=== PATIENT | female | born 1945 | race Caucasian/White ===

== ENCOUNTER 2019-03-20 15:03 | Emergency (ER) | payer OTHER, BC ==
[2019-03-20 15:33] VITALS: BP 148/85; PULSE 89; TEMP 98.1; BMI 36.0
[2019-03-20] MEDS ORDERED: ACETAMINOPHEN 500 MG TABLET (FP) PO ONE (16:00)
[2019-03-20] MEDS ORDERED: ACETAMINOPHEN 325 MG TABLET (FP) ONE (16:13)
--- NOTE | 2019-03-20 17:17 | PDOC ---
History of Present Illness - General Chief Complaint: Pain Stated Complaint: RT FOOT PAIN Time Seen by Provider: 03/20/19 15:10 - History of Present Illness Initial Comments: 03/20/19 17:15 Chief complaint right foot pain History of present illness: 73 years old past medical history significant for [id number] diabetes, psoriasis, edema presents with acute on chronic right ankle pain. Patient is status post cortisone injection to her regularly malleolus for chronic right ankle pain however instead of resting patient travel to [place] and has been walking on her foot for the past week now presents with progressively worsening pain to the same medial malleolus persistent constant worse with ambulation. No fever Past History - Past Medical History Allergies/Adverse Reactions: Allergies Allergy/AdvReac Type Severity Reaction Status Date / Time No Known Allergies Allergy Verified 03/20/19 15:04 COPD: No Diabetes: Yes Other medical history: PSORIASIS - Suicide/Smoking/Psychosocial Hx Smoking History: Never smoked Information on smoking cessation initiated: No Hx Alcohol Use: No Review of Systems - Review of Systems Comments:: 03/20/19 17:15 ROS: A complete review of 10 out of 10 review of systems is taken and is negative apart from what is previously mentioned below and in the HPI. *Physical Exam - Vital Signs Last Vital Signs Temp Pulse Resp BP Pulse Ox 98.1 F 89 18 148/85 97 03/20/19 15:03 03/20/19 15:03 03/20/19 15:03 03/20/19 15:03 03/20/19 15:03 - Physical Exam Comments: 03/20/19 17:15 Vitals: Triage Vital signs reviewed General Appearance: no acute distress, well nourished well developed, Head: Atraumatic, Extremities: Full range of motion to all extremities, swelling to the right ankle tenderness palpation over the right middle malleolus Skin: Warm and dry, dry skin Neuro: AOX3; Cranial Nerves 2-12 grossly intact, Strength intact to all extremities, Sensation intact to all extremities,gait normal Psych: normal mood, normal affect ED Treatment Course - Medications Given in the ED: ED Medications Discontinued Medications Generic Name Dose Route Start Last Admin Trade Name Freq PRN Reason Stop Dose Admin Acetaminophen 975 mg 03/20/19 16:00 03/20/19 16:15 Tylenol - PO 03/20/19 16:01 975 mg ONCE ONE Administration Medical Decision Making - Medical Decision Making 03/20/19 17:16 Acute on chronic right ankle pain Patient with Flats, not resting not using compression stockings not elevating foot Likely worsening pain secondary to overuse and arthritis/tendinitis We'll recommend sneakers compression stockings rest ice elevation and follow up with her porcelain slusher this week No acute fracture dislocation noted x-ray. Findings, need for follow-up and strict return instructions discussed with patient. *DC/Admit/Observation/Transfer Diagnosis at time of Disposition: Ankle pain Qualifiers: Chronicity: chronic Laterality: right Qualified Code(s): M25.571 - Pain in right ankle and joints of right foot; G89.29 - Other chronic pain - Discharge Dispostion Condition at time of disposition: Stable Decision to Admit order: No - Referrals - Patient Instructions Printed Discharge Instructions: DI for Ankle Pain Additional Instructions: Rest ankle as much as possible. Use compression stockings at all times. Ice affected area 20 minutes on 20 minutes off. Continue to alternate Tylenol Motrin as directed on package as needed for pain. After swelling reduces discussed with your porcelain slusher within 1 week the best type of footwear to help with her condition. Follow-up with the porcelain slusher within 1 week. - Post Discharge Activity
== END 2019-03-20 18:08 | disposition home or self-care (01) ==
LOC: FER 15:03
DX: M25.571 Pain in right ankle and joints of right foot (principal); G89.29 Other chronic pain; E11.9 Type 2 diabetes mellitus without complications; L40.9 Psoriasis, unspecified; R60.0 Localized edema
CPT/HCPCS: 73610-TC-RT-FY; 73630-TC-RT-FY; 99283-25

== ENCOUNTER 2019-08-01 22:40 | Emergency (ER) | payer OTHER, BC ==
[2019-08-01 22:48] VITALS: TEMP 98.7; BMI 37.8
[2019-08-01 23:13] VITALS: BP 171/98; PULSE 99
[2019-08-01] MEDS ORDERED: ASPIRIN 81 MG CHEWABLE TABLETS PO ONE (23:16)
--- NOTE | 2019-08-01 23:16 | PDOC ---
History of Present Illness - General Chief Complaint: Nausea/Vomiting Stated Complaint: NAUSEA,VOMITING MARINA ARMPIT PAIN History Source: Patient Exam Limitations: No Limitations - History of Present Illness Initial Comments: 08/01/19 23:09 Identification this is a 74-year-old female who comes in complaining of the bilateral axillary pain with some chest pain associated with nausea shortness of breath and vomited times once. Patient was out to eat dinner and suddenly developed bilateral axillary pain. Patient went outside to get some fresh air because she felt short of breath vomited times one and became very diaphoretic. Patient came in by EMS. Patient has history significant for hypertension, high cholesterol and diabetes Allergies: as per nursing notes Past Medical History: none Social history: Lives with family. No smoking. No alcohol. No illicit drugs. Surgical history: None General: No fevers or chills, no weakness, no weight loss HEENT: No change in vision. No sore throat,. No ear pain CardioVascular: no chest discomfort. No shortness of breath Respiratory:No cough, or wheezing. Gastrointestinal: no nausea, vomiting, diarrhea or constipation, No rectal bleeding Genitourinary: No dysuria, hematuria, or frequency Musculoskeletal: No joint or muscle pain or swelling Neurologic: No headache, vertigo, dizziness or loss of consciousness Psychiatric: nor depression Skin: No rashes or easy bruising Endocrine: no increased thirst or abnormal weight change Allergic: no skin or latex allergy All other systems reviewed and normal Exam: General: Well-nourished well-developed individual, no acute distress HEENT: Throat: Normal, tonsils normal, no erythema or exudate Neck: Supple, no meningeal signs, no lymphadenopathy Eyes::Pupils equal reactive and round, extraocular motion intact Chest: Nontender to palpation Cardiac: S1-S2 normal, regular rate and rhythm, no murmurs rubs or gallops Respiratory: Lungs clear to auscultation bilateral Abdomen: Soft, nondistended, normal bowel sounds, there is no tenderness on palpation diffusely Extremities: Warm, dry, no cyanosis, clubbing, or edema Skin: No rashes Neuro: Alert and oriented x3, CN II - XII intact, nonfocal exam with normal strength, normal sensation, normal reflexes, normal gait, Psych: Normal mood and affect 08/01/19 23:24 Assessment and plan: This is a 74-year-old female with a family most likely right-sided. Patient has multiple risk factors. [facility] was contacted and patient is been out of accepted to the adult ED possibly to go to the straight to the catheter lab. Transport is here at this time patient is being transferred to [facility] Past History - Past Medical History Allergies/Adverse Reactions: Allergies Allergy/AdvReac Type Severity Reaction Status Date / Time moxifloxacin [From Avelox] Allergy Verified 08/01/19 23:25 Home Medications: Ambulatory Orders Empagliflozin [Jardiance] 10 mg PO 08/01/19 Glipizide 5 mg PO 08/01/19 Sitagliptin Phos/Metformin HCl [Janumet 50-1,000 mg Tablet] 1 each PO 08/01/19 COPD: No Diabetes: Yes - Suicide/Smoking/Psychosocial Hx Smoking History: Never smoked Have you smoked in the past 12 months: No Information on smoking cessation initiated: No Hx Alcohol Use: No Drug/Substance Use Hx: No *Physical Exam - Vital Signs Last Vital Signs Temp Pulse Resp BP Pulse Ox 98.7 F 99 H 12 171/98 H 98 08/01/19 22:41 08/01/19 23:11 08/01/19 23:11 08/01/19 23:11 08/01/19 23:11 ED Treatment Course - LABORATORY CBC & Chemistry Diagram: 08/01/19 22:50 08/01/19 22:50 - ADDITIONAL ORDERS Additional order review: Laboratory Results 08/01/19 08/01/19 22:50 22:50 Sodium 136 Potassium 4.5 Chloride 98 Carbon Dioxide 27 Anion Gap 11 BUN 20.0 H Creatinine 0.9 Est GFR (CKD-EPI)AfAm 72.49 Est GFR (CKD-EPI)NonAf 62.55 Random Glucose 184 H Calcium 9.5 Total Bilirubin 0.6 AST 28 ALT 21 Alkaline Phosphatase 65 Creatine Kinase 73 Troponin I 0.25 H Total Protein 7.6 Albumin 4.2 08/01/19 22:50 RBC 6.26 H MCV 66.3 L MCHC 32.0 RDW 15.2 MPV 8.4 Neutrophils % 75.4 Lymphocytes % 16.4 Monocytes % 6.5 Eosinophils % 1.3 Basophils % 0.4 - Medications Given in the ED: ED Medications Discontinued Medications Generic Name Dose Route Start Last Admin Trade Name Freq PRN Reason Stop Dose Admin Aspirin 325 mg 08/01/19 23:16 08/01/19 23:22 Asa - PO 08/01/19 23:17 325 mg ONCE ONE Administration Nitroglycerin 0.3 mg 08/01/19 23:17 08/01/19 23:22 Nitrostat - SL 08/01/19 23:18 0.3 mg ONCE ONE Administration Medical Decision Making - Critical Care Time Total Critical Care Time (minutes): 45 Critical Care Statement: The care of this patient involved high complexity decision making to prevent further life threatening deterioration of the patient 's condition and/or to evaluate & treat vital organ system(s) failure or risk of failure. *DC/Admit/Observation/Transfer Diagnosis at time of Disposition: STEMI (ST elevation myocardial infarction) - Discharge Dispostion Disposition: TRANSFER ACUTE CARE/OTHER HOSP - Referrals Referrals: Tyshawn Aguilar MD [Primary Care Provider] - - Patient Instructions - Post Discharge Activity
[2019-08-01] MEDS ORDERED: NITROGLYCERIN SUBLINGUAL 1/200 0.3 MG BTL SL ONE (23:17)
[2019-08-01 23:18] LABS: ADD RBC MORPHOLOGY YES; BASO % 0.4 % (0-2.0); EOS % 1.3 % (0-4.5); HEMATOCRIT 41.5 % (32.4-45.2); HEMOGLOBIN 13.3 GM/dl (10.7-15.3); LYMPH % 16.4 % (8-40); MCH 21.2 pg (25.7-33.7); MEAN CELL VOLUME 66.3 fl (80-96); MEAN PLT VOLUME 8.4 fl (7.5-11.1); MONO % 6.5 % (3.8-10.2); NEUT % 75.4 % (42.8-82.8); PLATELET COUNT 271 K/MM3 (134-434); RBC 6.26 M/mm3 (3.60-5.2); RDW 15.2 % (11.6-15.6); WHITE BLOOD COUNT 12.4 K/mm3 (4.0-10.8)
[2019-08-01] MEDS ORDERED: ASPIRIN 81 MG CHEWABLE TABLETS ONE (23:20)
[2019-08-01] MEDS ORDERED: NITROGLYCERIN SUBLINGUAL 1/150 0.4 MG TAB ONE (23:20)
[2019-08-01 23:32] LABS: ANISOCYTOSIS 1+
[2019-08-01 23:33] LABS: OVALOCYTE 1+; PLATELET ESTIMATE ADEQUATE
[2019-08-01 23:35] LABS: ALBUMIN 4.2 g/dl (3.4-5.0); BILIRUBIN,TOTAL 0.6 mg/dl (0.2-1); CALCIUM 9.5 mg/dl (8.5-10); CREATININE 0.9 mg/dl (0.55-1.3); POTASSIUM 4.5 mmol/L (3.5-5.1); TOT PROT 7.6 g/dl (6.4-8.2)
--- NOTE | 2019-08-02 23:47 | EKG ---
Test Reason : Blood Pressure : / mmHG Vent. Rate : 100 BPM Atrial Rate : 100 BPM P-R Int : 164 ms QRS Dur : 084 ms QT Int : 366 ms P-R-T Axes : 053 006 068 degrees QTc Int : 472 ms Suspect unspecified pacemaker failure NORMAL SINUS RHYTHM LOW VOLTAGE QRS SEPTAL INFARCT , AGE UNDETERMINED INFERIOR INJURY PATTERN ACUTE CT / STEMI Consider right ventricular involvement in acute inferior infarct ABNORMAL ECG NO PREVIOUS ECGS AVAILABLE Confirmed by CAROLINA MANZO, MÓNICA ([id number]) on 08/02/2019 11:46:44 PM Referred By: MD SHEPHERD Confirmed By:MÓNICA FIGUEROA MD
--- NOTE | 2019-08-04 18:29 | EKG ---
Test Reason : Blood Pressure : / mmHG Vent. Rate : 101 BPM Atrial Rate : 101 BPM P-R Int : 164 ms QRS Dur : 084 ms QT Int : 376 ms P-R-T Axes : 056 018 074 degrees QTc Int : 487 ms SINUS TACHYCARDIA WITH PREMATURE ATRIAL COMPLEXES LOW VOLTAGE QRS ANTEROLATERAL INFARCT (CITED ON OR BEFORE 01-AUG-2019) ABNORMAL ECG WHEN COMPARED WITH ECG OF 01-AUG-2019 22:54, PREMATURE ATRIAL COMPLEXES ARE NOW PRESENT POOR R PROGRESSION Confirmed by KAYA NICHOLSON MD ([id number]) on 08/04/2019 6:29:36 PM Referred By: MD SHEPHERD Confirmed By:KAYA NICHOLSON MD
== END 2019-08-01 23:45 | disposition short-term general hospital (02) ==
LOC: FER 22:40 → SUPCPDRO 22:40 → FER 23:45
DX: I21.3 ST elevation (STEMI) myocardial infarction of unspecified site (principal); E11.9 Type 2 diabetes mellitus without complications
CPT/HCPCS: 36415; 80053; 82550; 84484; 85025; 93005; 99283-25

== ENCOUNTER 2020-01-03 12:20 | Inpatient (IN) | payer OTHER, BC ==
--- NOTE | 2020-01-03 13:00 | PDOC ---
History of Present Illness - General Chief Complaint: Chest Pain Stated Complaint: BELCHING,CHESTPAIN Time Seen by Provider: 01/03/20 12:42 History Source: Patient Exam Limitations: No Limitations - History of Present Illness Initial Comments: 74 yo F history CAD (s/p cath a few months ago), HTN, HL, DM presents with 3 day history of substernal chest burning/pressure. Denies any associated SOB, TODD. She notes that it is worse with meals, but that it occurs in the absence of meals, as well. Associated with nausea. She states she had a heart attack a few months ago, symptoms included facial flushing, followed by nausea and vigorous vomiting after a meal. Currently has the pressure sensation. Past History - Past Medical History Allergies/Adverse Reactions: Allergies Allergy/AdvReac Type Severity Reaction Status Date / Time moxifloxacin [From Avelox] Allergy Verified 01/03/20 12:22 Home Medications: Ambulatory Orders Aspirin [ASA -] 81 mg PO DAILY 01/03/20 Atorvastatin Ca [Lipitor] 80 mg PO HS 01/03/20 Clopidogrel Bisulfate [Clopidogrel] 75 mg PO DAILY 01/03/20 Empagliflozin [Jardiance] 10 mg PO DAILY 01/03/20 Glipizide [Glipizide ER] 5 mg PO DAILY 01/03/20 Metoprolol Succinate [Toprol Xl] 50 mg PO DAILY 01/03/20 Sitagliptin Phos/Metformin HCl [Janumet 50-1,000 mg Tablet] 1 each PO BID COPD: No Diabetes: Yes HTN: Yes Hypercholesterolemia: Yes - Surgical History Cardiac Surgery: (CARDIAC CATH) - Psycho Social/Smoking Cessation Hx Smoking History: Never smoked Have you smoked in the past 12 months: No Information on smoking cessation initiated: No Hx Alcohol Use: No Drug/Substance Use Hx: No Review of Systems - Review of Systems Able to Perform ROS?: Yes Comments:: GENERAL/CONSTITUTIONAL: No fever or chills. No weakness. HEAD, EYES, EARS, NOSE AND THROAT: No change in vision. No ear pain or discharge. No sore throat. CARDIOVASCULAR: +Chest pain. No shortness of breath. RESPIRATORY: No cough, wheezing, or hemoptysis. GASTROINTESTINAL: No nausea, vomiting, diarrhea or constipation. GENITOURINARY: No dysuria, frequency, or change in urination. MUSCULOSKELETAL: No joint or muscle swelling or pain. No neck or back pain. SKIN: No rash. NEUROLOGIC: No headache, vertigo, loss of consciousness, or change in strength/ sensation. ENDOCRINE: No increased thirst. No abnormal weight change. HEMATOLOGIC/LYMPHATIC: No anemia, easy bleeding, or history of blood clots. ALLERGIC/IMMUNOLOGIC: No hives or skin allergy. *Physical Exam - Vital Signs Last Vital Signs Temp Pulse Resp BP Pulse Ox 98.6 F 74 20 141/85 97 01/03/20 12:21 01/03/20 12:21 01/03/20 12:21 01/03/20 12:21 01/03/20 12:21 - Physical Exam GENERAL: Awake, alert, and fully oriented, in no acute distress. Obese HEAD: No signs of trauma EYES: PERRLA, EOMI, sclera anicteric, conjunctiva clear ENT: Auricles normal inspection, hearing grossly normal, nares patent, oropharynx clear without exudates. Moist mucosa NECK: Normal ROM, supple, no lymphadenopathy, JVD, or masses LUNGS: Breath sounds equal, clear to auscultation bilaterally. No wheezes, and no crackles HEART: Regular rate and rhythm, normal S1 and S2, no murmurs, rubs or gallops ABDOMEN: Soft, nontender, normoactive bowel sounds. No guarding, no rebound. No masses EXTREMITIES: Normal range of motion, no edema. No clubbing or cyanosis. No cords, erythema, or tenderness NEUROLOGICAL: Cranial nerves II through XII grossly intact. Normal speech, normal gait. Motor and sensation intact SKIN: Warm, dry, normal turgor, no rashes or lesions noted. Heart Score/ECG Review - History History: Moderately suspicious - Electrocardiogram EKG: Normal - Age Age: >/= 65 - Risk Factors Risk Factors Heart Score: Yes Hx Hypercholesterolemia, Yes Hx Hypertension, Yes Hx Diabetes, Yes Hx Obesity Based on the list above the patient has:: >/=3 risk factors or Hx atherosclerotic disease - Troponin Troponin: </= normal limit - Score Heart Score - Total: 5 ED Treatment Course - LABORATORY CBC & Chemistry Diagram: 01/03/20 13:40 01/03/20 13:40 Medical Decision Making - Medical Decision Making 01/03/20 14:44 Pt with recent LA, multiple cardiac risk factors presents with substernal chest pressure for the past few days. No acute changes on EKG. Given her risk factors , will place on obs. 01/03/20 15:11 Case d/w Dr. Ahn, will admit to tele. Discharge - Discharge Information Problems reviewed: Yes Clinical Impression/Diagnosis: Chest pain Qualifiers: Chest pain type: unspecified Qualified Code(s): R07.9 - Chest pain, unspecified Condition: Stable - Admission Yes - Follow up/Referral - Patient Discharge Instructions - Post Discharge Activity
[2020-01-03] MEDS ORDERED: FAMOTIDINE 20 MG/50 ML IVPB 20 MG/50 ML MG IVPB ONE (13:41)
[2020-01-03 13:55] LABS: HEMOGLOBIN 12.6 GM/dl (10.7-15.3)
[2020-01-03 14:00] LABS: INR 1.21 (0.82-1.09); PROTHROMBIN TIME (PATIENT) 13.5 SEC (10.2-13.0)
[2020-01-03 14:03] LABS: ALBUMIN 3.8 g/dl (3.4-5.0); BILIRUBIN,TOTAL 0.8 mg/dl (0.2-1); CALCIUM 9.2 mg/dl (8.5-10); CREATININE 0.7 mg/dl (0.55-1.3); POTASSIUM 4.8 mmol/L (3.5-5.1); TOT PROT 6.8 g/dl (6.4-8.2)
[2020-01-03 14:05] LABS: BASO % 0.6 % (0-2.0); EOS % 1.5 % (0-4.5); HEMATOCRIT 40.6 % (32.4-45.2); LYMPH % 16.6 % (8-40); MCH 20.8 pg (25.7-33.7); MCHC 30.9 g/dl (32.0-36.0); MEAN CELL VOLUME 67.4 fl (80-96); MEAN PLT VOLUME 8.7 fl (7.5-11.1); MONO % 8.6 % (3.8-10.2); NEUT % 72.7 % (42.8-82.8); PLATELET COUNT 194 K/MM3 (134-434); RBC 6.03 M/mm3 (3.60-5.2); RDW 14.6 % (11.6-15.6); WHITE BLOOD COUNT 8.9 K/mm3 (4.0-10.8)
[2020-01-03 14:06] LABS: ADD RBC MORPHOLOGY YES
[2020-01-03 14:11] LABS: ROULEAU FEW
[2020-01-03] MEDS ORDERED: MAG HYDROX/AL HYDROX/SIMETH 30 ML UNIT-DOSE CUP PO PRN (15:25)
--- NOTE | 2020-01-03 15:45 | HP ---
Admitting History and Physical - Admission Chief Complaint: Epigastric burning History of Present Illness: 74 years old obese female history of CAD status post VA in August 01, hypertension, dyslipidemia, type 2 diabetes mellitus, in July 2019 patient was presented also ED with chest pain with ST-T changes patient was transferred to [facility] there she had cardiac catheterization considering unsuitable anatomy for stent placement, patient was planned for medical management, she has been doing fine today presented with complaint of 3 day history of substernal chest burning/pressure. Denies any associated SOB, TODD. She notes that it is worse with meals, but that it occurs in the absence of meals, as well. Associated with nausea. She states she had a heart attack a few months ago, symptoms included facial flushing, followed by nausea and vigorous vomiting after a meal. Patient is hemodynamically stable, initial EKG shows no acute ST-T changes, initial cardiac enzymes negative, considering multiple CAD risk factor and presentation is being admitted to rule out ACS.. Dining Host consulted from the ED. History Source: Patient - Past Medical History Cardiovascular: Yes: CAD, HTN Gastrointestinal: Yes: GERD, Peptic Ulcer Disease - Smoking History Smoking history: Never smoked Have you smoked in the past 12 months: No - Alcohol/Substance Use Hx Alcohol Use: No - Social History Usual Living Arrangement: Yes: With Spouse History of Recent Travel: No Home Medications - Allergies Allergies/Adverse Reactions: Allergies Allergy/AdvReac Type Severity Reaction Status Date / Time moxifloxacin [From Avelox] Allergy Verified 01/03/20 12:22 - Home Medications Home Medications: Ambulatory Orders Aspirin [ASA -] 81 mg PO DAILY 01/03/20 Atorvastatin Ca [Lipitor] 80 mg PO HS 01/03/20 Clopidogrel Bisulfate [Clopidogrel] 75 mg PO DAILY 01/03/20 Empagliflozin [Jardiance] 10 mg PO DAILY 01/03/20 Glipizide [Glipizide ER] 5 mg PO DAILY 01/03/20 Metoprolol Succinate [Toprol Xl] 50 mg PO DAILY 01/03/20 Sitagliptin Phos/Metformin HCl [Janumet 50-1,000 mg Tablet] 1 each PO BID Review of Systems - Review of Systems Constitutional: denies: Chills, Diaphoresis, Fever, Lethargy Eyes: denies: Blind Spots, Blurred Vision, Double Vision, Eye Pain HENT: denies: Difficult Swallowing, Ear Discharge, Ear Pain, Epistaxis Neck: denies: Decreased ROM, Lumps, Pain on Movement Cardiovascular: reports: Chest Pain. denies: Edema, Palpitations, Shortness of Breath Respiratory: denies: Cough, Exercise Intolerance, Hemoptysis, Orthopnea Gastrointestinal: reports: Abdominal Pain, Nausea. denies: Constipation, Diarrhea Genitourinary: denies: Burning, Discharge, Dysuria, Flank Pain Breasts: denies: Breast Implants, Discharge from Nipple Musculoskeletal: denies: Back Pain, Crepitus, Decreased ROM Integumentary: denies: Blister, Bruising, Change in Color Neurological: denies: Change in LOC, Change in Speech, Confusion Endocrine: denies: Excessive Sweating, Flushing, Increased Hunger Hematology/Lymphatic: denies: Easily Bruised, Excessive Bleeding Physical Examination Vital Signs: Vital Signs Temperature 98.6 F 01/03/20 12:21 Pulse Rate 74 01/03/20 12:21 Respiratory Rate 20 01/03/20 12:21 Blood Pressure 141/85 01/03/20 12:21 O2 Sat by Pulse Oximetry (%) 97 01/03/20 12:21 General: Elderly female, comfortable, not in distress HEENT; mucous membranes moist, no anemia, no jaundice, PERRLA, no nystagmus Neck: No JVD, supple, no bruit, thyroid palpably normal, normal carotid pulsations. Chest: Nontender, clear to auscultation bilaterally CVS: S1-S2 regular/irregular no murmur/gallop/rub Abdomen: Nondistended, soft, mild epigastric tenderness bowel sounds present. Extremities: No edema., No calf tenderness, pulses present [employer] COORDINATOR: AO X3 , no gross motor sensory deficit Labs: CBC, BMP 01/03/20 13:40 01/03/20 13:40 Imaging - Results Chest X-ray: Report Reviewed (No acute infiltrate) EKG: Report Reviewed (No acute ST-T) Problem List - Problems (1) Chest pain Assessment/Plan: Present with epigastric discomfort with nausea similar to previous microinfarction episode in July 2019, hemodynamically stable, will continue ASA, metoprolol 50 mg XL daily, high-dose atorvastatin 80 mg daily, cardiology consult, serial cardiac enzymes, echo, TSH and hemoglobin A1c level. Problems reviewed: Yes Code(s): R07.9 - CHEST PAIN, UNSPECIFIED Qualifiers: Chest pain type: unspecified Qualified Code(s): R07.9 - Chest pain, unspecified (2) Nausea Assessment/Plan: Possibility of GERD continue famotidine 2011 twice daily and Maalox as needed Problems reviewed: Yes Code(s): R11.0 - NAUSEA (3) Type 2 diabetes mellitus Assessment/Plan: Diabetic diet, hold metformin and glimepiride, correction dose insulin, Januvia , Accu-Cheks before meals and bedtime, hemoglobin A1c will optimize glycemic control accordingly. Code(s): E11.9 - TYPE 2 DIABETES MELLITUS WITHOUT COMPLICATIONS (4) Hypertension Assessment/Plan: Well-controlled continue all home medication metoprolol XL 50 mg will consider getting RAAS if indicated Problems reviewed: Yes Code(s): I10 - ESSENTIAL (PRIMARY) HYPERTENSION (5) Hypercholesterolemia Assessment/Plan: Continue statin follow-up lipid panel and TSH Problems reviewed: Yes Code(s): E78.00 - PURE HYPERCHOLESTEROLEMIA, UNSPECIFIED
[2020-01-03] MEDS ORDERED: sitaGLIPtin PHOSPHATE 50 MG TABLET PO SCH (16:00)
--- NOTE | 2020-01-03 16:36 | CON.CARD ---
Consult Consult Specialty:: cardiology Reason for Consultation:: Epigastric pain - History of Present Illness History of Present Illness: 74 yo F DM was admitted in July with axilary pain and diaphoresis and dianosed with NSTEMI. Cath at [facility] described 90% leision wich was not amenable to PCI and managed medically. There has been no recurrence of those symptoms. For several weeks has recurrent sharp epigastric abdominal pain radiating to the back. Symptoms are worse postparandially and relieved with drinking tea. No pain with ambulation or exertion. Had CP upon ER presentation without ECG changes and this was relieved after famotidine. - History Source History Provided By: Patient - Past Medical History Cardio/Vascular: Yes: CAD, HTN Gastrointestinal: Yes: GERD, Peptic Ulcer Disease - Alcohol/Substance Use Hx Alcohol Use: No - Smoking History Smoking history: Never smoked Have you smoked in the past 12 months: No - Social History History of Recent Travel: No Home Medications - Allergies Allergies/Adverse Reactions: Allergies Allergy/AdvReac Type Severity Reaction Status Date / Time moxifloxacin [From Avelox] Allergy Verified 01/03/20 12:22 - Home Medications Home Medications: Ambulatory Orders Aspirin [ASA -] 81 mg PO DAILY 01/03/20 Atorvastatin Ca [Lipitor] 80 mg PO HS 01/03/20 Clopidogrel Bisulfate [Clopidogrel] 75 mg PO DAILY 01/03/20 Empagliflozin [Jardiance] 10 mg PO DAILY 01/03/20 Glipizide [Glipizide ER] 5 mg PO DAILY 01/03/20 Metoprolol Succinate [Toprol Xl] 50 mg PO DAILY 01/03/20 Sitagliptin Phos/Metformin HCl [Janumet 50-1,000 mg Tablet] 1 each PO BID Review of Systems - Review of Systems Constitutional: reports: No Symptoms Eyes: reports: No Symptoms HENT: reports: No Symptoms Neck: reports: No Symptoms Cardiovascular: reports: No Symptoms Respiratory: reports: No Symptoms Gastrointestinal: reports: Abdominal Pain Genitourinary: reports: No Symptoms Vital Signs: Vital Signs Temperature 98.8 F 01/03/20 15:37 Pulse Rate 71 01/03/20 15:37 Respiratory Rate 20 01/03/20 12:21 Blood Pressure 138/56 L 01/03/20 15:37 O2 Sat by Pulse Oximetry (%) 96 01/03/20 15:37 Constitutional: Yes: Well Nourished, No Distress Eyes: Yes: Conjunctiva Clear, EOM Intact HENT: Yes: Atraumatic, Normocephalic Neck: Yes: Supple, Trachea Midline Respiratory: Yes: Regular, CTA Bilaterally Gastrointestinal: Yes: Normal Bowel Sounds, Tenderness (epigastric and RUQ) Cardiovascular: Yes: Regular Rate and Rhythm JVD: No Carotid Bruit: No PMI: Non-Displaced Heart Sounds: Yes: S1, S2 Murmur: No: Systolic Murmur, Diastolic Murmur Edema: No - Other Data Labs, Other Data: CBC, BMP 01/03/20 13:40 01/03/20 13:40 INR, PTT INR 1.21 (0.82-1.09) 01/03/20 13:40 Troponin, BNP 01/03/20 13:40 Troponin I < 0.03 Troponin, BNP 01/03/20 13:40 Troponin I < 0.[address] T changes. Imaging - Results EKG: Image Reviewed (NSR NO ST T chnages.) Problem List - Problems (1) Chest pain Code(s): R07.9 - CHEST PAIN, UNSPECIFIED Qualifiers: Chest pain type: unspecified Qualified Code(s): R07.9 - Chest pain, unspecified Assessment/Plan 74 F with CAD sp NSTEMI 07/2019 now with post parandial epigastric pain. 1. CAD Stable CAD-90% lesion was noted on recent cath but not amenable to PCI and manage medically. I do not thinkher current symptoms are cardiac in nature. ECG is normal Normal TP x 1. Patient should continue with high intensity statin and BB. If no GI contraindications should continue with DAPT. 2. Epigastric pain: Likely GI etiology. OK to use PPI Consider GI eval. Will see as needed.
[2020-01-03 17:47] VITALS: BMI 38.3
[2020-01-03] MEDS: INSULIN SLIDING SCALE (NOVOLOG) 1 VIAL SQ SCH (18:38)
[2020-01-03] MEDS ORDERED: ATORVASTATIN CA 80 MG TABLET (FP) PO SCH (22:00)
[2020-01-03] MEDS: FAMOTIDINE 20 MG/50 ML IVPB 20 MG/50 ML MG IVPB SCH (23:05)
[2020-01-04] MEDS: INSULIN SLIDING SCALE (NOVOLOG) 1 VIAL SQ SCH (06:54)
[2020-01-04 09:31] LABS: CALCIUM 8.5 mg/dl (8.5-10); CREATININE 0.5 mg/dl (0.55-1.3); MAGNESIUM 1.7 mg/dL (1.8-2.4); POTASSIUM 4.3 mmol/L (3.5-5.1)
--- NOTE | 2020-01-04 09:59 | EKG ---
Test Reason : Blood Pressure : / mmHG Vent. Rate : 075 BPM Atrial Rate : 075 BPM P-R Int : 160 ms QRS Dur : 080 ms QT Int : 416 ms P-R-T Axes : -17 -20 037 degrees QTc Int : 464 ms NORMAL SINUS RHYTHM SEPTAL INFARCT (CITED ON OR BEFORE 01-AUG-2019) ABNORMAL ECG WHEN COMPARED WITH ECG OF 01-AUG-2019 23:07, PREMATURE ATRIAL COMPLEXES ARE NO LONGER PRESENT QUESTIONABLE CHANGE IN INITIAL FORCES OF ANTEROLATERAL LEADS ST NO LONGER ELEVATED IN INFERIOR LEADS T WAVE INVERSION LESS EVIDENT IN ANTEROLATERAL LEADS Confirmed by LEVY GOOD MD ([id number]) on 01/04/2020 9:58:51 AM Referred By: DR GROSSMAN Confirmed By:LEVY GOOD MD
[2020-01-04] MEDS ORDERED: CLOPIDOGREL BISULFATE 75 MG TABLET (FP) PO SCH (10:00)
[2020-01-04] MEDS ORDERED: ASPIRIN 81 MG CHEWABLE TABLETS PO SCH (10:00)
[2020-01-04] MEDS ORDERED: PATIENT'S OWN MEDICATION (NON-FORMULARY) (Empagliflozin [Jardiance] 10 MG) PO SCH (10:00)
[2020-01-04] MEDS ORDERED: ENOXAPARIN NA (PORCINE) 40 MG/0.4 ML DISP.SYRIN SQ SCH (10:00)
[2020-01-04 10:30] VITALS: BP 138/72; PULSE 77; TEMP 98.3
[2020-01-04] MEDS: FAMOTIDINE 20 MG/50 ML IVPB 20 MG/50 ML MG IVPB SCH (10:38)
--- NOTE | 2020-01-04 11:55 | DS ---
Physical Examination Vital Signs: Vital Signs Temperature 98.3 F 01/04/20 10:00 Pulse Rate 77 01/04/20 10:00 Respiratory Rate 22 H 01/04/20 10:00 Blood Pressure 138/72 01/04/20 10:00 O2 Sat by Pulse Oximetry (%) 99 01/03/20 22:00 General: Elderly female, comfortable, not in distress HEENT; mucous membranes moist, no anemia, no jaundice, PERRLA, no nystagmus Neck: No JVD, supple, no bruit, thyroid palpably normal, normal carotid pulsations. Chest: Nontender, clear to auscultation bilaterally CVS: S1-S2 regular/irregular no murmur/gallop/rub Abdomen: Nondistended, soft, mild epigastric tenderness bowel sounds present. Extremities: No edema., No calf tenderness, pulses present POST DOC FELLOWSHIP: AO X3 , no gross motor sensory deficit Labs: CBC, BMP 01/03/20 13:40 01/04/20 06:00 CE X2 Jenifer; CXR Normal Lipase: 243 Normal LFTS. Discharge Summary Problems reviewed: Yes Reason For Visit: CHEST PAIN Current Active Problems Chest pain (Acute) Hypercholesterolemia (Acute) Hypertension (Acute) Nausea (Acute) Type 2 diabetes mellitus (Acute) Hospital Course: 74 years old obese female history of CAD status post OR in August 01, hypertension, dyslipidemia, type 2 diabetes mellitus, in July 2019 patient was presented also ED with chest pain with ST-T changes patient was transferred to [facility] there she had cardiac categorization considering no significant stenosis medical management was planned,presented with complaint of3 day history of substernal chest burning/pressure. Denies any associated SOB, TODD. She notes that it is worse with meals, but that it occurs in the absence of meals, as well. Associated with nausea. Considering history of CAD and presentation admitted for out ACS, patient admission EKG and serial EKGs remained normal sinus rhythm, 3 troponin I are normal, responded to famotidine and Maalox, evaluated by cardiology consult recommended most likely GI etiology, overnight patient improved denies any complaint hemodynamically stable is being discharged home to follow-up with his PMD. Condition: Stable - Instructions Diet, Activity, Other Instructions: Plaese F/U with ypor PMD to arrange a referral for Gastroenterolgist doctor Disposition: HOME - Home Medications Comprehensive Discharge Medication List: Ambulatory Orders Aspirin [ASA -] 81 mg PO DAILY 01/03/20 Atorvastatin Ca [Lipitor] 80 mg PO HS 01/03/20 Clopidogrel Bisulfate [Clopidogrel] 75 mg PO DAILY 01/03/20 Empagliflozin [Jardiance] 10 mg PO DAILY 01/03/20 Glipizide [Glipizide ER] 5 mg PO DAILY 01/03/20 Metoprolol Succinate [Toprol Xl] 50 mg PO DAILY 01/03/20 Sitagliptin Phos/Metformin HCl [Janumet 50-1,000 mg Tablet] 1 each PO BID Atorvastatin Ca [Lipitor] 80 mg PO HS tablet 01/04/20 Mag Hydrox/Al Hydrox/Simeth [Mylanta Oral Suspension -] 30 ml PO Q6H PRN #1 cup 01/04/20 Pantoprazole Sodium [Protonix -] 40 mg PO DAILY #30 tablet.ec 01/04/20
[2020-01-04] MEDS ORDERED: PANTOPRAZOLE 40 MG TABLET PO SCH (12:00)
[2020-01-04] MEDS ORDERED: MAGNESIUM 1GM/D5W 100ML - 100 ML IVPB IVPB ONE (12:00)
== END 2020-01-04 15:03 | disposition home or self-care (01) | DRG 392 ==
LOC: FER 12:20 → FM/S 15:12
PROVIDERS: ADMIT Internal Medicine; ATTEND Internal Medicine
DX: K21.9 Gastro-esophageal reflux disease without esophagitis (principal); R07.89 Other chest pain; I10 Essential (primary) hypertension; E78.5 Hyperlipidemia, unspecified; E11.9 Type 2 diabetes mellitus without complications; R11.0 Nausea; I25.10 Atherosclerotic heart disease of native coronary artery without angina pectoris; I25.2 Old myocardial infarction; Z87.11 Personal history of peptic ulcer disease; R10.13 Epigastric pain
CPT/HCPCS: 36415; 71045-TC-FY; 80048; 80053; 82962; 83036; 83690; 83735; 84443; 84484; 85025; 85610; 93005; 99285-25